=== PATIENT | male | born 1970 ===

== ENCOUNTER 2025-08-18 18:27 | Inpatient (IN) | payer MEDICARE, SELFPAY ==
[~2025-08-18 18:27] MED LIST: Iopamidol 370 76% 100 ML VIAL ONE
[2025-08-18] MEDS ORDERED: Heparin 25,000 UNITS/D5W 500 ml bag ONE (18:37)
[2025-08-18] MEDS ORDERED: Heparin 10,000 UNITS/ 10 ML VIAL ONE ×3 (18:37→19:10)
[2025-08-18] MEDS ORDERED: Adenosine 6 mg (2 mL) VIAL ONE (18:40)
[2025-08-18] MEDS ORDERED: Lidocaine 1% (PF) 30 ML VIAL ONE (18:41)
[2025-08-18] MEDS ORDERED: Nitroglycerin 50 MG/250 ML BOT 250 ML ONE (18:41)
[2025-08-18] MEDS ORDERED: DOPamine 400 MG/D5W 250 ML 0 ML ONE (18:41)
[2025-08-18] MEDS ORDERED: Nitroglycerin 0.4 MG TAB (25 Tab Bottle) SL PRN (18:59)
[2025-08-18 19:09] LABS: #Basophils 0.03 10x3/uL (0.0-0.2); #Eosinophils 0.09 10x3/uL (0.0-0.7); #Monocytes 0.78 10x3/uL (0.11-0.59); #Neutrophils 6.18 10x3/uL (1.40-6.50); %Basophils 0.3 % (0.0-1.0); %Eosinophils 0.9 % (0.0-10.0); %Lymphocytes 26.6 % (21.0-51.0); %Monocytes 8.0 % (0.0-10.0); %Neutrophils 63.8 % (42.0-75.0); Hematocrit 46.8 % (42.0-52.0); Hemoglobin 16.9 g/dL (14.0-18.0); INR-International Normal Ratio 1.0; Mean Corpuscular Hemoglobin 34.6 pg (27.0-31.0); Mean Corpuscular Volume 95.7 fL (78.0-98.0); PTT 32.1 sec (22.9-36.1); Platelet Count 143 10x3/uL (130-400); Prothrombin Time 13.2 sec (12.0-14.7); Red Blood Cell (RBC) Count 4.89 mill/uL (4.70-6.10); White Blood Cell (WBC) Count 9.70 10x3/uL (4.8-10.8)
[2025-08-18] MEDS ORDERED: Norepinephrine 8 MG/0.9% NS 0 ML ONE (19:10)
[2025-08-18] MEDS ORDERED: TICAGRELOR 90 MG TABLET ONE (19:43)
[2025-08-18 20:24] LABS: ALT (SGPT) 21 U/L (Less than 45); AST (SGOT) 35 U/L (11-34); Albumin 4.5 g/dL (3.1-4.5); Alkaline Phosphatase 73 U/L (40-110); Anion Gap 12 mmol/L (10-20); BUN (Urea Nitrogen) 13 mg/dL (8.4-25.7); Bilirubin, Total 0.5 mg/dL (0.3-1.2); Calc. Creatinine Clearance 0 mL/min (70-130); Calcium 9.7 mg/dL (7.8-10.44); Carbon Dioxide 22 mmol/L (22-29); Chloride 103 mmol/L (98-107); Globulin 3.2 g/dL (2.4-3.5); Glucose 82 mg/dL (70-105); Potassium 4.1 mmol/L (3.5-5.1); Sodium 133 mmol/L (136-145)
[2025-08-18] MEDS ORDERED: TICAGRELOR 90 MG TABLET PO SCH (21:00)
[2025-08-19 03:24] LABS: #Basophils 0.03 10x3/uL (0.0-0.2); #Eosinophils 0.04 10x3/uL (0.0-0.7); #Monocytes 0.91 10x3/uL (0.11-0.59); #Neutrophils 5.78 10x3/uL (1.40-6.50); %Basophils 0.3 % (0.0-1.0); %Eosinophils 0.4 % (0.0-10.0); %Lymphocytes 24.2 % (21.0-51.0); %Monocytes 10.1 % (0.0-10.0); %Neutrophils 64.4 % (42.0-75.0); Hematocrit 45.7 % (42.0-52.0); Hemoglobin 15.7 g/dL (14.0-18.0); Mean Corpuscular Hemoglobin 34.3 pg (27.0-31.0); Mean Corpuscular Volume 99.8 fL (78.0-98.0); Platelet Count 118 10x3/uL (130-400); Red Blood Cell (RBC) Count 4.58 mill/uL (4.70-6.10); White Blood Cell (WBC) Count 8.98 10x3/uL (4.8-10.8)
[2025-08-19 04:21] LABS: ALT (SGPT) 31 U/L (Less than 45); AST (SGOT) 173 U/L (11-34); Albumin 3.9 g/dL (3.1-4.5); Alkaline Phosphatase 62 U/L (40-110); Anion Gap 15 mmol/L (10-20); BUN (Urea Nitrogen) 10 mg/dL (8.4-25.7); Bilirubin, Total 0.7 mg/dL (0.3-1.2); Calc. Creatinine Clearance 89 mL/min (70-130); Calcium 9.1 mg/dL (7.8-10.44); Carbon Dioxide 19 mmol/L (22-29); Cardiac Risk 4.0 (Less than 4.5); Chloride 107 mmol/L (98-107); Cholesterol 196 mg/dl (< 200 Desired); Globulin 2.8 g/dL (2.4-3.5); Glucose 84 mg/dL (70-105); HDL Cholesterol 49 mg/dL (>60 Neg Risk); LDL Cholesterol, Calculated 131 mg/dL; Potassium 4.1 mmol/L (3.5-5.1); Sodium 137 mmol/L (136-145); Triglycerides 81 mg/dL (Less than 150)
[2025-08-19] MEDS: TICAGRELOR 90 MG TABLET PO SCH (08:30)
[2025-08-19] MEDS: Losartan 25 MG TAB PO SCH (08:31)
[2025-08-19] MEDS: Lactulose 20 GM (30 mL) UDCUP PO SCH (08:31)
[2025-08-19] MEDS: Aspirin Chewable 81 MG TAB PO SCH (08:31)
[2025-08-19] MEDS: Pantoprazole 40 MG DR.TAB PO SCH (08:31)
[2025-08-19] MEDS ORDERED: Metoprolol Succinate XL 25 MG ER.TAB PO SCH (09:00)
[2025-08-19] MEDS: Mupirocin 1 GM TUBE TP SCH (20:29)
[2025-08-20 04:28] LABS: #Basophils 0.04 10x3/uL (0.0-0.2); #Eosinophils 0.10 10x3/uL (0.0-0.7); #Monocytes 1.01 10x3/uL (0.11-0.59); #Neutrophils 6.87 10x3/uL (1.40-6.50); %Basophils 0.4 % (0.0-1.0); %Eosinophils 1.0 % (0.0-10.0); %Lymphocytes 22.7 % (21.0-51.0); %Monocytes 9.7 % (0.0-10.0); %Neutrophils 65.6 % (42.0-75.0); Hematocrit 44.9 % (42.0-52.0); Hemoglobin 15.3 g/dL (14.0-18.0); Mean Corpuscular Hemoglobin 34.2 pg (27.0-31.0); Mean Corpuscular Volume 100.4 fL (78.0-98.0); Platelet Count 113 10x3/uL (130-400); Red Blood Cell (RBC) Count 4.47 mill/uL (4.70-6.10); White Blood Cell (WBC) Count 10.45 10x3/uL (4.8-10.8)
[2025-08-20] MEDS: PNEUMOC 20-VAL CONJ-DIP CRM/PF 0.5 ML SYRINGE IM ONE (08:52)
[2025-08-20 13:25] VITALS: BMI 24.2
[2025-08-21 16:17] VITALS: BP 150/90; TEMP 98.4
[2025-08-22] MEDS ORDERED: Carvedilol 3.125 MG TAB PO SCH (08:00)
[2025-08-22] MEDS ORDERED: Losartan 25 MG TAB PO SCH ×2 (09:00)
== END 2025-08-21 18:12 | disposition home or self-care (01) | DRG 322 ==
LOC: ERS 18:27 → CCL 18:55 → CCU 18:59 → OBS 08-20 12:45
PROVIDERS: ADMIT Internal Medicine; ATTEND Internal Medicine
PROC: 027035Z Dilation of Coronary Artery, One Artery with Two Drug-eluting Intraluminal Devices, Percutaneous Approach (ICD-10-PCS; principal; 2025-08-18)
PROC: 4A023N7 Measurement of Cardiac Sampling and Pressure, Left Heart, Percutaneous Approach (ICD-10-PCS; 2025-08-18)
PROC: B2111ZZ Fluoroscopy of Multiple Coronary Arteries using Low Osmolar Contrast (ICD-10-PCS; 2025-08-18)
PROC: B2151ZZ Fluoroscopy of Left Heart using Low Osmolar Contrast (ICD-10-PCS; 2025-08-18)
DX: I21.11 ST elevation (STEMI) myocardial infarction involving right coronary artery (principal); E87.1 Hypo-osmolality and hyponatremia; I10 Essential (primary) hypertension; K70.30 Alcoholic cirrhosis of liver without ascites; Z98.52 Vasectomy status; Z82.49 Family history of ischemic heart disease and other diseases of the circulatory system; Z87.891 Personal history of nicotine dependence; Z79.899 Other long term (current) drug therapy; Z88.0 Allergy status to penicillin; Z98.61 Coronary angioplasty status; E78.5 Hyperlipidemia, unspecified; I25.10 Atherosclerotic heart disease of native coronary artery without angina pectoris; I25.84 Coronary atherosclerosis due to calcified coronary lesion; R00.1 Bradycardia, unspecified
CPT/HCPCS: 36415; 71045; 80053; 80061; 83880; 84484; 85025; 85347; 85610; 85730; 86850; 86900; 86901; 92928; 92941; 93005; 93306; 93458; 93798; 94760; 96374; 96375; C1769; C1874; C1887; C1894; C9600; C9606; J0153; J1265; J1644; J2003; J2250; J2272; J3010; Q9967